=== PATIENT | male | born 1990 | race Hispanic/Latino ===

== ENCOUNTER 2021-04-12 14:38 | Outpatient (CLI) | payer BC | END 2021-04-12 14:39 | disposition home or self-care (01) | LOC: CTENTCT 14:38 | PROVIDERS: ATTEND Otolaryngology Plastic Surgery within the Head & Neck | DX: J34.2 Deviated nasal septum (principal) | CPT/HCPCS: 70486 ==

== ENCOUNTER 2021-04-20 07:10 | Outpatient (CLI) | payer BC ==
[2021-04-20 17:59] LABS: SARS-CoV-2 PCR by NAA Not Detected (NotDetected)
== END 2021-04-20 07:11 | disposition home or self-care (01) ==
LOC: LABBT 07:10
PROVIDERS: ATTEND Otolaryngology Plastic Surgery within the Head & Neck
DX: Z01.812 Encounter for preprocedural laboratory examination (principal); Z20.822 Contact with and (suspected) exposure to COVID-19
CPT/HCPCS: U0003; U0005

== ENCOUNTER 2021-04-25 | Day surgery (SDC) | payer BC | END 2021-04-25 14:42 | disposition home or self-care (01) | PROC: 09TL0ZZ Resection of Nasal Turbinate, Open Approach (ICD-10-PCS; principal; 2021-04-25) | PROC: 09SM0ZZ Reposition Nasal Septum, Open Approach (ICD-10-PCS; principal; 2021-04-25) | PROC: 099R8ZZ Drainage of Left Maxillary Sinus, Via Natural or Artificial Opening Endoscopic (ICD-10-PCS; principal; 2021-04-25) | PROC: 09TV8ZZ Resection of Left Ethmoid Sinus, Via Natural or Artificial Opening Endoscopic (ICD-10-PCS; principal; 2021-04-25) | PROC: 09TU8ZZ Resection of Right Ethmoid Sinus, Via Natural or Artificial Opening Endoscopic (ICD-10-PCS; principal; 2021-04-25) | PROC: 099Q8ZZ Drainage of Right Maxillary Sinus, Via Natural or Artificial Opening Endoscopic (ICD-10-PCS; principal; 2021-04-25) ==